=== PATIENT | male | born 1970 | race Caucasian/White ===

== ENCOUNTER 2017-09-14 17:02 | Inpatient (IN) | payer OTHER ==
--- NOTE | 2017-09-14 17:36 | ED CARDIAC/CP/PALPITATIONS ---
History of Present Illness General Chief Complaint: General Adult Stated Complaint: PT HAS A PAIN IN THE CHEST AND THE BACK,SOB Source: patient Exam Limitations: no limitations Allergies Coded Allergies: No Known Allergies (09/14/17) Reconcile Medications Esomeprazole Magnesium (Nexium) 20 MG CAPSULE. 1 CAP PO DAILY GI (Reported) Triage Note: PT TO ED FOR C/C OF MID EPIGASTRIC PAIN THAT RADIATES INTO MID BACK AND THEN TRAVELS TO BILATERAL SIDES AND INTERMITTENTLY INTO ARMS SINCE TUESDAY. PT NOTED TO BE SPEAKING IF IT HURTS TO TALK, BUT PAIN IS NOT REPRODUCIBLE ON PALPATION. REPORTS +SOB. TRIED MOTRIN WITHOUT RELIEF. +SMOKER. Triage Nurses Notes Reviewed? yes Onset: Gradual Duration: constant Timing: recent history Quality/Severity: pressure Location: substernal Radiation: back HPI: Patient is a 47-year-old male with a past medical history of GERD compliant with Nexium who is in every day significant tobacco smoker who presents emergency room with a four-day history of worsening substernal chest crushing pain with radiation to back. Patient denies any arm pain jaw pain nausea vomiting fever chills leg swelling hemoptysis shortness of breath. Patient does have significant family history of cardiac infarction. Patient to ibuprofenyesterday with no relief of symptoms Denies any leg swelling (Juan Miguel CHARLES,Arnaldo) Vital Signs & Intake/Output Vital Signs & Intake/Output Vital Signs Date Time Temp Pulse Resp B/P B/P Pulse O2 O2 Flow FiO2 Mean Ox Delivery Rate 09/15 2007 980.0 79 18 132/80 97 Nasal 2.0L Cannula 09/14 1830 98.0 81 18 138/71 97 Room Air 09/14 1808 84 22 142/78 97 Room Air 09/14 1751 97 Room Air 09/14 1715 97.7 87 20 147/88 96 Room Air Room Air (Candice RESENDIZ,Pipo Henderson) Past History Travel History Traveled to [place] past 21 day No Medical History Any Pertinent Medical History? see below for history Neurological: NONE EENT: NONE Cardiovascular: NONE Respiratory: NONE Gastrointestinal: GERD Hepatic: NONE Renal: NONE Musculoskeletal: NONE Psychiatric: NONE Endocrine: NONE Blood Disorders: NONE Cancer(s): NONE RADIOLOGY MANAGER/Reproductive: NONE Surgical History Surgical History: non-contributory Psychosocial History What is your primary language Nauruan Tobacco Use: Current Daily Use Daily Tobacco Use Amount/Type: => 5 Cigarettes daily ETOH Use: denies use Illicit Drug Use: denies illicit drug use Family History Hx Contributory? No (Arnaldo Dean) Review of Systems Review of Systems Constitutional: Reports: no symptoms. EENTM: Reports: no symptoms. Respiratory: Reports: see HPI. Cardiovascular: Reports: see HPI. GI: Reports: no symptoms. Genitourinary: Reports: no symptoms. Musculoskeletal: Reports: no symptoms. Skin: Reports: no symptoms. Neurological/Psychological: Reports: no symptoms. Hematologic/Endocrine: Reports: no symptoms. Immunologic/Allergic: Reports: no symptoms. All Other Systems: Reviewed and Negative (Arnaldo Dean) Physical Exam Physical Exam General Appearance: mild distress, obese Head: atraumatic Eyes: Bilateral: normal appearance. Ears, Nose, Throat: normal ENT inspection Neck: normal inspection Respiratory: normal breath sounds Cardiovascular: regular rate/rhythm Gastrointestinal: normal bowel sounds, soft, non-tender Extremities: no edema Neurologic/Psych: no motor/sensory deficits, awake Skin: intact, normal color, warm/dry Lymphatic: no anterior cervical abril Core Measures ACS in differential dx? Yes CVA/TIA Diagnosis No Sepsis Present: No Sepsis Focused Exam Completed? No (Arnaldo Dean) Progress Differential Diagnosis: AMI, aortic dissection, atrial fibrillation, cholecystitis, CHF/pulm edema, costochondritis, hyperkalemia, hypovolemia, hyperthyroid, hyperventilation, intracranial hemorrhage, musculoskeletal pain, myocarditis, pancreatitis, pericarditis, pneumonia, pneumothorax, PSVT, pulmonary embolism, PUD/GERD, PVCs/PACs, respiratory failure, sepsis, unstable angina, V-fib/V-Tach, WPW syndrome Plan of Care: Orders Procedure Date/time Status Heart Healthy Diet 09/15 B Active Patient Data 09/14 2129 Active TROPONIN LEVEL 09/15 2007 Complete EKG 09/15 2007 Active ED Holding Orders 09/14 2006 Active Admit to inpatient 09/14 2006 Active Vital Signs 09/14 2007 Active Code Status 09/14 2007 Active Add-on Test (ER Only) 09/14 1814 Active Intake & Output 09/14 1741 Active Add-on Test (ER Only) 09/14 1734 Active LIPASE 09/14 1730 Complete D-DIMER 09/14 1730 Complete AMYLASE 09/14 1730 Complete TROPONIN LEVEL 09/14 1720 Complete COMPREHENSIVE METABOLIC PANEL 09/14 1720 Complete CBC WITHOUT DIFFERENTIAL 09/14 1720 Complete EKG 09/14 1705 Active Laboratory Tests 09/14/17 2030: Troponin I < 0.01 09/14/17 1734: Amylase Cancelled, Lipase Cancelled 09/14/17 1730: Anion Gap 14, Estimated GFR > 60, BUN/Creatinine Ratio 11.8, Glucose 85, Calcium 9.7, Total Bilirubin 0.5, AST 25, ALT 35, Alkaline Phosphatase 80, Troponin I < 0.01, Total Protein 7.2, Albumin 4.4, Globulin 2.8, Albumin/Globulin Ratio 1.6, Amylase 49, Lipase 159, D-Dimer High Sensitivty 318 H, CBC w Diff NO MAN DIFF REQ, RBC 5.41, MCV 91.4, MCH 31.0, MCHC 33.9, RDW 13.4, MPV 8.4, Gran % 61.3, Lymphocytes % 27.1, Monocytes % 7.0, Eosinophils % 4.2, Basophils % 0.4, Absolute Granulocytes 6.5, Absolute Lymphocytes 2.9, Absolute Monocytes 0.7 H, Absolute Eosinophils 0.4, Absolute Basophils 0 ON initial examination was complaining of crushing substernal chest pain with radiation to back was in mild distress diaphoretic Patient initially was given therapeutic aspirin for concerns of ACS patient was given nitroglycerin when he states his symptoms of pain is worsened since. GI cocktail was administered Initial EKG was normal sinus rhythm no concerns of infarct troponin initially was negative Discussed patient with cardiology is Dr. Hennessy who was aware of patient's presenting complaints and will be admitted and he will consult patient feels mildly improved with morphine however is still complaining of ongoing substernal crushing chest pain. CT angiogram of chest was unremarkable for acute process, [address] Hennessy in which he advised patient to receive repeat EKG and troponin And at this time did not administered heparin due to no findings of ischemic abnormalities of EKG or troponin Repeat EKG was no ischemic findings and was unchanged from initial Diagnostic Imaging: Viewed by Me: Radiology Read. Radiology Impression: no acute abnormality Initial ED EKG: normal p-waves, normal QRS complex, 81 BPM,NSR, MILD PEAKED T WAVES Repeat EKG: unchanged Comments: PATIENT: PIPO MOORE PRESENT AGE: 47 PATIENT ACCOUNT NO: [id number] : 69 LOCATION: [facility] ORDERING PHYSICIAN: Arnaldo CHARLES SERVICE DATE: 09/14/17 EXAM TYPE: CAT - CTA CHEST-PULMONARY EMBOLISM EXAMINATION: CT ANGIOGRAM OF THE CHEST WITH AND WITHOUT CONTRAST (CT PULMONARY ANGIOGRAM FOR PE) CLINICAL INFORMATION: 47-year-old man with chest pain. COMPARISON: 09/14/2017 chest radiograph TECHNIQUE: Prior to contrast administration, noncontrast localization images were obtained. Subsequently, multidetector volumetric imaging was performed from the thoracic inlet to below the diaphragms following the administration of 95 mL Optiray 320 intravenous contrast. No contrast reaction reported. Sagittal, coronal, and MIP oblique sagittal reformatted images were obtained on the CT workstation, uploaded to PACS, and reviewed. Total exam dose-length product 507 mGy-cm. FINDINGS: QUALITY OF STUDY/CONTRAST BOLUS: Satisfactory PULMONARY ARTERIES: No central or segmental pulmonary emboli. LUNG: There is severe paraseptal and centrilobular emphysema. Atelectatic changes are noted at both lung bases. PLEURA: No pleural effusion or pneumothorax. MEDIASTINUM: Normal heart size. No pericardial effusion. No hilar or mediastinal lymphadenopathy. CHEST WALL/AXILLA: No axillary or internal mammary lymphadenopathy. OSSEOUS STRUCTURES: No acute or suspicious osseous abnormality. UPPER ABDOMEN: Unremarkable. IMPRESSION: No evidence of acute or chronic pulmonary emboli. Severe emphysema. DICTATED BY: Christiane Call MD DATE/TIME DICTATED:09/14/171937 CHIP TESTER:TEODORO DATE/TIME TRANSCRIBED:09/14/171937 CONFIDENTIAL, DO NOT COPY WITHOUT PATIENT: PIPO MOORE PRESENT AGE: 47 PATIENT ACCOUNT NO: [id number] : 69 LOCATION: [facility] ORDERING PHYSICIAN: Arnaldo CHARLES SERVICE DATE: 09/14/17 EXAM TYPE: RAD - XRY-CHEST XRAY, TWO VIEWS EXAMINATION: XR CHEST CLINICAL INFORMATION: 47-year-old man with chest pain. COMPARISON: None TECHNIQUE: 2 views of the chest were obtained. FINDINGS: The lungs are well expanded, without evidence of focal airspace consolidation or pulmonary edema. Heart size is within the range of normal. There are no pleural effusions. There is chronic appearing diffuse interstitial prominence. IMPRESSION: No convincing radiographic evidence of an acute cardiopulmonary process. DICTATED BY: Christiane Call MD DATE/TIME DICTATED:09/14/171846 CHIP TESTER:TEODORO DATE/TIME TRANSCRIBED:09/14/171846 (Arnaldo Dean) Departure Departure Disposition: STILL A PATIENT Condition: Stable Clinical Impression Primary Impression: Angina at rest Referrals: Patient Has No Primary Care Dr Departure Forms: Customer Survey General Discharge Information Admission Note Documentation of Exam: Documentation of any treatments & extenuating circumstances including Concerns Regarding Discharge (functional status, medication knowledge or non-compliance, living conditions, etc.) that warrant an admission rather than observation: [PT requires telemetry admission for concerns of angina at rest and persistent chest pain patient REQUIRES cardiology consultation and repeat EKG and serial troponins repeat blood work and possible cardiac catheterization if symptoms persist.] (Arnaldo Dean) Admission Note Spoke With: Rene Parkinson MD Documentation of Exam: Documentation of any treatments & extenuating circumstances including Concerns Regarding Discharge (functional status, medication knowledge or non-compliance, living conditions, etc.) that warrant an admission rather than observation: [See below note] PA/WASTE HANDLING TECHNICIAN Co-Sign Statement Statement: ED Attending supervision documentation- [X] I saw and evaluated the patient. I have also reviewed all the pertinent lab results and diagnostic results. I agree with the findings and the plan of care as documented in the PA's/WASTE HANDLING TECHNICIAN's documentation. [X] I have reviewed the ED Record and agree with the PA's/WASTE HANDLING TECHNICIAN's documentation. [] Additions or exceptions (if any) to the PAs/WASTE HANDLING TECHNICIAN's note and plan are summarized below: [Substernal chest pain radiating to his back. No relief with several nitroglycerin. Patient has multiple risk factors for coronary artery disease. Case was discussed with Dr. Hennessy cardiology who recommends admission to the hospital.] (Candice RESENDIZ,Pipo Henderson) Critical Care Note Critical Care Note Critical Care Time: 30-74 min (Arnaldo Dean)
[2017-09-14 17:41] LABS: ABSOLUTE BASOPHIL COUNT 0 /CUMM (0.0-0.2); ABSOLUTE EOSINOPHIL COUNT 0.4 /CUMM (0.0-0.7); ABSOLUTE GRANULOCYTE CT 6.5 /CUMM (1.4-6.5); ABSOLUTE LYMPH COUNT 2.9 /CUMM (1.2-3.4); ABSOLUTE MONOCYTE COUNT 0.7 /CUMM (0.10-0.60); BASOPHIL % 0.4 % (0.0-2.0); EOSINOPHIL % 4.2 % (0-5); GRANULOCYTE % 61.3 % (42.2-75.2); HEMATOCRIT 49.5 % (42-52); MEAN CORPUSCULAR HGB CONC 33.9 G/DL (33.0-37.0); MEAN CORPUSCULAR VOLUME 91.4 FL (80.0-94.0); MEAN PLATELET VOLUME 8.4 FL (7.4-10.4); PLATELET COUNT 285 /CUMM (130-400); RBC DISTRIBUTION WIDTH 13.4 % (11.5-14.5); RED BLOOD CELL CT 5.41 /CUMM (4.70-6.10); WHITE BLOOD CELL COUNT 10.7 /CUMM (4.8-10.8)
--- NOTE | 2017-09-14 18:52 | RADIOLOGY REPORT ---
EXAMINATION: XR CHEST CLINICAL INFORMATION: 47-year-old man with chest pain. COMPARISON: None TECHNIQUE: 2 views of the chest were obtained. FINDINGS: The lungs are well expanded, without evidence of focal airspace consolidation or pulmonary edema. Heart size is within the range of normal. There are no pleural effusions. There is chronic appearing diffuse interstitial prominence. IMPRESSION: No convincing radiographic evidence of an acute cardiopulmonary process.
[2017-09-14] MEDS ORDERED: NEXIUM20 M1 PO (18:55)
--- NOTE | 2017-09-14 19:46 | CT SCAN REPORT ---
EXAMINATION: CT ANGIOGRAM OF THE CHEST WITH AND WITHOUT CONTRAST (CT PULMONARY ANGIOGRAM FOR PE) CLINICAL INFORMATION: 47-year-old man with chest pain. COMPARISON: 09/14/2017 chest radiograph TECHNIQUE: Prior to contrast administration, noncontrast localization images were obtained. Subsequently, multidetector volumetric imaging was performed from the thoracic inlet to below the diaphragms following the administration of 95 mL Optiray 320 intravenous contrast. No contrast reaction reported. Sagittal, coronal, and MIP oblique sagittal reformatted images were obtained on the CT workstation, uploaded to PACS, and reviewed. Total exam dose-length product 507 mGy-cm. FINDINGS: QUALITY OF STUDY/CONTRAST BOLUS: Satisfactory PULMONARY ARTERIES: No central or segmental pulmonary emboli. LUNG: There is severe paraseptal and centrilobular emphysema. Atelectatic changes are noted at both lung bases. PLEURA: No pleural effusion or pneumothorax. MEDIASTINUM: Normal heart size. No pericardial effusion. No hilar or mediastinal lymphadenopathy. CHEST WALL/AXILLA: No axillary or internal mammary lymphadenopathy. OSSEOUS STRUCTURES: No acute or suspicious osseous abnormality. UPPER ABDOMEN: Unremarkable. IMPRESSION: No evidence of acute or chronic pulmonary emboli. Severe emphysema.
--- NOTE | 2017-09-14 20:14 | History & Physical ---
Lisandra Morrison MD,[facility] 09/14/17 2013: General Information and HPI MD Statement: I have seen and personally examined PIPO MOORE and documented this H&P. The patient is a 47 year old M who presented with a patient stated chief complaint of [chest pain and SOB]. Source of Information: patient Exam Limitations: no limitations History of Present Illness: Patient is 47-year-old male with no significant PMH except GERD, back surgery ( for disc) presented to the ED with CC of chest pain. Patient noted that his substernal chest pain started since Tuesday night when it woke him up from sleep. Initially he thought it was related to his past back pains and took Motrin but had no improvement. The pain is constant, intensity ranging from 5-8/10, radiated to the back, intermittantly to right scapula, left arm, increased with sitting up, deep breathing (associated with shortness of breathing) and did not get better (patient reported minimal improvement after recieving nitro patch and morphin in ED). He denied N and V, fever chills, abdominal pain, change in stool or urine color. He had stress test/Echo done 5 years ago at [facility], [facility] after complains of chest tightness and noted the results were normal. 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 He reported smoking 1PPD for the last 20 years, denied alcohol or drugs. His brother when he was 48 from heart attack. Allergies/Medications Allergies: Coded Allergies: No Known Allergies (09/14/17) Home Med list Esomeprazole Magnesium (Nexium) 20 MG CAPSULE. 1 CAP PO DAILY GI (Reported) Past History Travel History Traveled to [place] past 21 day No Medical History Neurological: NONE EENT: NONE Cardiovascular: NONE Respiratory: NONE Gastrointestinal: GERD Hepatic: NONE Renal: NONE Musculoskeletal: NONE Psychiatric: NONE Endocrine: NONE Blood Disorders: NONE Cancer(s): NONE WINE MANAGER/Reproductive: NONE Surgical History Surgical History: non-contributory Past Family/Social History Psychosocial History ETOH Use: denies use Illicit Drug Use: denies illicit drug use Review of Systems Review of Systems Constitutional: Reports: see HPI. Exam & Diagnostic Data Last 24 Hrs of Vital Signs/I&O Vital Signs Date Time Temp Pulse Resp B/P B/P Pulse O2 O2 Flow FiO2 Mean Ox Delivery Rate 09/14 2242 Nasal 2.0L Cannula 09/144 98.1 68 18 124/72 97 Nasal 2.0L Cannula 09/15 2007 98.0 79 18 132/80 97 Nasal 2.0L Cannula 09/14 1830 98.0 81 18 138/71 97 Room Air 09/14 1808 84 22 142/78 97 Room Air 09/14 1751 97 Room Air 09/14 1715 97.7 87 20 147/88 96 Room Air Room Air Physical Exam General Appearance Alert, Oriented X3, Cooperative, Mild Distress, holding right side of chest with left hand Skin No Significant Lesion Skin Temp/Moisture Exam: Warm/Dry Sepsis Skin Exam (color): Normal for Ethnicity HEENT Atraumatic, EOMI, Pupils reactive to light Cardiovascular Regular Rate, Normal S1, Normal S2 Lungs Clear to Auscultation, decreased air entry due to pain Abdomen Soft, No Tenderness, reported initial RUQ tenderness with ED personnel which imrproved at time of interview Neurological Normal Speech Extremities No Edema Last 24 Hrs of Labs/Petey: Laboratory Tests 09/14/17 2030: Troponin I < 0.01 09/14/17 1734: Amylase Cancelled, Lipase Cancelled 09/14/17 1730: Anion Gap 14, Estimated GFR > 60, BUN/Creatinine Ratio 11.8, Glucose 85, Calcium 9.7, Total Bilirubin 0.5, AST 25, ALT 35, Alkaline Phosphatase 80, Troponin I < 0.01, Total Protein 7.2, Albumin 4.4, Globulin 2.8, Albumin/Globulin Ratio 1.6, Amylase 49, Lipase 159, D-Dimer High Sensitivty 318 H, CBC w Diff NO MAN DIFF REQ, RBC 5.41, MCV 91.4, MCH 31.0, MCHC 33.9, RDW 13.4, MPV 8.4, Gran % 61.3, Lymphocytes % 27.1, Monocytes % 7.0, Eosinophils % 4.2, Basophils % 0.4, Absolute Granulocytes 6.5, Absolute Lymphocytes 2.9, Absolute Monocytes 0.7 H, Absolute Eosinophils 0.4, Absolute Basophils 0 Assessment/Plan Assessment: Patient is 47-year-old male presented with chest pain constant, minimal improvement with nitro and morphin Echo and stress test normal 5 y ago PMH GERD, back surgery (for disc) VS, Ph Ex at admission: BP 147/88, KS 87, others insignificant, saturating well in room temperature, was placed on 2L later in the ED EKG: Tall T in precordial Labs at admission: CBCs insignificant, BEP insignificant Initial troponin negative D-dimer: 318 Imagings at admission: CXR: No convincing radiographic evidence of an acute cardiopulmonary process. Chest CTA: No evidence of acute or chronic pulmonary emboli. Severe emphysema. Patient was admitted to telemetry floor for management of following conditions: Chest pain EKG changes, T tall in precordial most likely non cardiac, rule out ACS considering FH and smoking - admit to tele - puls ox, oxygen - Vital signs - ECG and tn, repeat - Morphin - nitro for pain, Asprin - pantoprazol FC DVT ppx: alps, pharmacological heart healthy diet As Ranked By This Provider Problem List: 1. Chest pain Core Measures/Misc (12/26) Acute Coronary Syndrome ACS Diagnosis: No Congestive Heart Failure Congestive Heart Failure Diagnosis No Cerebrovascular Accident CVA/TIA Diagnosis: No VTE (View Protocol) VTE Risk Factors Age>40 No Mechanical VTE Prophylaxis d/t N/A MechProphylax Ordered No VTE Pharm Prophylaxis d/t NA PharmProphylax ordered Sepsis (View protocol) Sepsis Present: No If YES complete Sepsis Event Note If YES complete Sepsis Event Note Shyanne Alatorre 09/14/172023: Core Measures/Misc (12/26) Sepsis (View protocol) If YES complete Sepsis Event Note If YES complete Sepsis Event Note Resident Review Statement Resident Statement: examined this patient, discussed with internist medical doctor md, agreed with internist medical doctor md Other Findings: This is a 47-year-old male with past medical history of gastroesophageal reflux disease, previous back surgeries 2 for prolapsed disc, current active smoker ( one pack per day), positive family history of acute coronary syndrome (brother at 48 years secondary to ID) came in with chief complaint of worsening chest pain that started 3 days prior to admission. The chest pain was midepigastric in location, radiating into mid back, traveling to bilateral sides, intermittently into b/l arms, at its worse it was 8 out of 10, at its best it was 4 out of 10, tried Motrin without any relief, the pain does not change with position, no particular position that he is more comfortable in, no recent history of fever, cough sore throat or any viral illness, drinks 2 coffees per day, does take Nexium pretty much every day for his gastroesophageal reflux disease. He received IV morphine, GI cocktail and nitroglycerin while in the ER. As per him the GI cocktail did not help much however nitroglycerin did relieve the pain a little bit but not much. Vitals on admission temperature of 98.0, pulse of 81, respiration of 22, blood pressure 148/72, he was 97% saturating on room air. Current active smoker 1 pack per day Troponin negative less than 0.01. EKG showed Chest x-ray did not show any convincing radiographic evidence of acute cardiopulmonary process. D-dimer was found to be in 300s, CTA ruled out any evidence of PE, however did show paraseptal and centrilobular emphysema. Problem list along with assessment and plan. Problem #1 chest pain. * Possible ACS versus GERD vs Pericarditis * Ekg and troponin X 3, iv morphine 2mg Q6prn, oxygen, aspirin ,cardiology consult. * consider echo in am. * Pain not positional and no previous history of sore throat, viral illness, therefore paericarditis less likely however definitely on differentials, EKG changes donot show typical KS depression of diffuse St elevations,ct cardiac monitoring,not on iv heparin for now however if bumps trop, will consider it. * Initial set of troponin negative, no acute St-T wave changes on EKG * Of note, positive history of ID and premature cardiac related in patient 's brother as age of 48 * will give higher dose of Aspirin for it's antiinflammatory effect. * Ct nitro Q6 for chest pain. Problem #2 GERD * Last endoscopy atleast 10 years back, previous endo as per patient showed prebarret's changes which were cauterized, will ct iv PPI BID, guaic stool. Problem #3 Current Active Smoker * Smoking cessation counselling done Problem #4 Emphysema * 2/2 to smoking * crucial to quit. reduce smoking to prevent worsening changes and COPD. FC heart healthy diet Pain Mx morphine Dvt Px lovenox Iggy RESENDIZ, [facility] 09/14/17 2208: Core Measures/Misc (12/26) Sepsis (View protocol) If YES complete Sepsis Event Note If YES complete Sepsis Event Note Attending MD Review Statement Attending Statement Attending MD Statement: examined this patient, discuss w/resident/PA/RN LIAISON, agreed w/resident/PA/RN LIAISON, discussed with family, reviewed images, amended to note Attending Assessment/Plan: 47 yo obese M with h/o GERD, pre-Goss's, chronic back pain 2/2 herniated disc surgery, [id number] smoking history and significant history of cardiac arrest in his elder brother (age 48 yrs), is brought in for evaluation of 3-day h/o ongoing substernal crushing chest pain radiating to the back, and both shoulders , associated with dyspnea. Leaning forward at times help with the pain but not always. He has difficulty finding the most comfortable position. He denies any recent URI symptoms. He denies palpitations, nausea or diaphoresis. He has been taking Motrin three times a day with not much relief. Symptoms were very severe for him to come to ER. He denies any trauma or fall/ injury. Of note, patient was observed at [place] [facility] about 5 yrs ago for chest pain, ACS was ruled out and he underwent a stress test/ Echo that was normal. He does not recollect the name of the artificial marble worker. In the ER, he received aspirin, SL nitro, GI cocktail without much relief, he then got nitropaste and morphine with some relief. Vitals stable. Examination is unremarkable. Chest pain is not reproducible. Labs normal with two sets of trop being negative. EKG: sinus rhythm with hyperacute T-waves in V2-4, but no J-point elevation, Qtc 414. Chest: no acute process. CTA: severe emphysema, but no acute or chronic PE. No pleural effusion or pneumonia. Assessment and plan: 1. Substernal chest pain rule out ACS 2. Possible acute pericarditis although EKG and clinical features are not clearly supportive 3. Smoker 4. H/o GERD - Admit to Telemetry - Watch for arrhythmias - Serial EKG and troponin - Aspirin given in ER, will switch to 650 mg TID for possible pericarditis - Watch for bleeding while on aspirin - Obtain echo to assess for pericardial effusion, RWMA, EF and valvular disorders - Cardiology consult (Dr. Hennessy) - Continue O2 supplementation - Nitro paste Q6 - IV morphine as needed - If troponin trending up, will consider IV heparin - Hold off beta elena and statin for now, d/w cardio in AM - Check ESR, CRP, lipid panel, TSH, free T4, HbA1c - IV protonix BID - Smoking cessation counseling DVT ppx Lovenox. Full code.
[2017-09-14 22:52] VITALS: BP 112/82
--- NOTE | 2017-09-14 23:30 | Admission Certification ---
Admission Certification Certification Statement - As attending physician, I certify that at the time of - admission, based on clinical presentation, severity of - symptoms, need for further diagnostic testing and - therapeutic interventions, and risk of adverse outcomes - without in-hospital treatment, in my clinical assessment, - this patient requires an acute hospital stay for a minimum - of two nights or longer. I have also considered psychsocial - factors such as support system, advanced age, financial - issues, cognitive issues, and failed out-patient treatments, - past re-admission history, safety of patient, and lack of - compliance as applicable. Specific rationale supporting this admission is: Chest pain in this young patient with risk factors including smoking, obesity and significant family cardiac history.
--- NOTE | 2017-09-15 00:34 | Cons- Cardiology ---
General Information and HPI Consulting Request Date of Consult: 09/15/17 Requested By: Iggy RESENDIZ,Rene Reason for Consult: Chest discomfort ; rule out ischemia; rule out pericarditis Source of Information: patient, family Exam Limitations: no limitations History of Present Illness: Patient is 47-year-old male with no significant PMH except GERD, back surgery ( for disc) presented to the ED with CC of chest pain. Patient noted that his substernal chest pain started since Tuesday night when it woke him up from sleep. Initially he thought it was related to his past back pains and took Motrin but had no improvement. The pain is constant, intensity ranging from 5-8/10, radiated to the back, intermittantly to right scapula, left arm, increased with sitting up, deep breathing (associated with shortness of breathing) and did not get better (patient reported minimal improvement after recieving nitro patch and morphin in ED). He denied N and V, fever chills, abdominal pain, change in stool or urine color. He had stress test/Echo done 5 years ago at [facility] after complains of chest tightness and noted the results were normal. Allergies/Medications Allergies: Coded Allergies: No Known Allergies (09/14/17) Home Med List: Omeprazole 40 MG CAPSULE. 1 CAP PO DAILY ACID REFLUX Current Medications: Current Medications Sig/Ward Start time Last Medication Dose Route Stop Time Status Admin Aspirin 81 MG DAILY 09/15 899 AC PO Aspirin 325 MG ONCE ONE 09/14 1814 DC 09/14 PO 09/15 1815 1808 Aspirin 0 .STK-MED ONE 09/14 181 DC PO Enoxaparin Sodium 40 MG DAILY 09/15 899 AC SC Morphine Sulfate 2 MG Q4P PRN 09/14 2230 AC 09/14 IV 2312 Morphine Sulfate 0 .STK-MED ONE 09/14 1854 DC .ROUTE Morphine Sulfate 4 MG ONCE ONE 09/14 1845 DC 09/14 IV 09/14 184 1850 Nitroglycerin 0.5 GM Q12P PRN 09/14 2230 AC TOP Nitroglycerin 0 .STK-MED ONE 09/14 1907 DC TOP Nitroglycerin 1 GM ONCE ONE 09/14 1845 DC 09/14 TOP 09/14 1842006 Nitroglycerin 0.4 MG ONCE ONE 09/14 1815 DC 09/14 SL 09/14 1816 1808 Nitroglycerin 0 .STK-MED ONE 09/14 1811 DC Pantoprazole Sodium 40 MG DAILY 09/15 0900 AC IV Past History Travel History Traveled to [place] past 21 day No Medical History Neurological: NONE EENT: NONE Cardiovascular: NONE Respiratory: NONE Gastrointestinal: GERD Hepatic: NONE Renal: NONE Musculoskeletal: NONE Psychiatric: NONE Endocrine: NONE Blood Disorders: NONE Cancer(s): NONE DIRECTOR OF PUBLICATIONS/Reproductive: NONE Surgical History Surgical History: non-contributory Psychosocial History Smoking Status: Current Everyday Smoker ETOH Use: denies use Illicit Drug Use: denies illicit drug use Exam & Diagnostic Data Vital Signs and I&O Vital Signs Date Time Temp Pulse Resp B/P B/P Pulse O2 O2 Flow FiO2 Mean Ox Delivery Rate 09/14 2252 97.8 7 20 112/82 93 Nasal 3.0L Cannula 09/14 2241 Nasal 2.0L Cannula 09/144 98.1 68 18 124/72 97 Nasal 2.0L Cannula 09/15 2007 98.0 79 18 132/80 97 Nasal 2.0L Cannula 09/14 1830 98.0 81 18 138/71 97 Room Air 09/14 1808 84 22 142/78 97 Room Air 09/14 1751 97 Room Air 09/14 1715 97.7 87 20 147/88 96 Room Air Room Air Intake & Output 09/15 0809/15 0000 09/14 1600 09/14 0800 09/14 0000 09/13 1600 Intake Total Output Total Balance Patient 240 lb Weight Weight Bed scale Measurement Method Physical Exam: General Appearance Alert, Oriented X3, Cooperative, Mild Distress, holding right side of chest with left hand Skin No Significant Lesion HEENT Atraumatic, EOMI, Pupils reactive to light Cardiovascular Regular Rate, Normal S1, Normal S2, 1/6 sytolic murmur; no chest wall tenderness Lungs Clear to Auscultation, decreased air entry due to pain Abdomen Soft, No Tenderness, reported initial RUQ tenderness with ED personnel which imrproved at time of interview Neurological Normal Speech Extremities No Edema Labs/Petey Results: Laboratory Tests 09/14 09/14 09/14 2030 1734 1730 Chemistry Sodium (137 - 145 mmol/L) 143 Potassium (3.5 - 5.1 mmol/L) 4.3 Chloride (98 - 107 mmol/L) 105 Carbon Dioxide (22 - 30 mmol/L) 25 Anion Gap (5 - 16) 14 BUN (9 - 20 mg/dL) 13 Creatinine (0.7 - 1.2 mg/dL) 1.1 Estimated GFR (>60 ml/min) > 60 BUN/Creatinine Ratio (7 - 25 %) 11.8 Glucose (65 - 99 mg/dL) 85 Calcium (8.4 - 10.2 mg/dL) 9.7 Total Bilirubin (0.2 - 1.3 mg/dL) 0.5 AST (17 - 59 U/L) 25 ALT (21 - 72 U/L) 35 Alkaline Phosphatase (< 127 U/L) 80 Troponin I (<0.11 ng/ml) < 0.01 < 0.01 Total Protein (6.3 - 8.2 g/dL) 7.2 Albumin (3.5 - 5.0 g/dL) 4.4 Globulin (1.9 - 4.2 gm/dL) 2.8 Albumin/Globulin Ratio (1.1 - 2.2 %) 1.6 Amylase (30 - 110 U/L) Cancelled 49 Lipase (23 - 300 U/L) Cancelled 159 Coagulation D-Dimer High Sensitivty (0 - 243 ng/ml) 318 H Hematology CBC w Diff NO MAN DIFF REQ WBC (4.8 - 10.8 /CUMM) 10.7 RBC (4.70 - 6.10 /CUMM) 5.41 Hgb (14.0 - 18.0 G/DL) 16.8 Hct (42 - 52 %) 49.5 MCV (80.0 - 94.0 FL) 91.4 MCH (27.0 - 31.0 PG) 31.0 MCHC (33.0 - 37.0 G/DL) 33.9 RDW (11.5 - 14.5 %) 13.4 Plt Count (130 - 400 /CUMM) 285 MPV (7.4 - 10.4 FL) 8.4 Gran % (42.2 - 75.2 %) 61.3 Lymphocytes % (20.5 - 51.1 %) 27.1 Monocytes % (1.7 - 9.3 %) 7.0 Eosinophils % (0 - 5 %) 4.2 Basophils % (0.0 - 2.0 %) 0.4 Absolute Granulocytes (1.4 - 6.5 /CUMM) 6.5 Absolute Lymphocytes (1.2 - 3.4 /CUMM) 2.9 Absolute Monocytes (0.10 - 0.60 /CUMM) 0.7 H Absolute Eosinophils (0.0 - 0.7 /CUMM) 0.4 Absolute Basophils (0.0 - 0.2 /CUMM) 0 Diagnostic Data EKG Results NSR; subtle hyperacute T waves in V3-V5 Assessment/Plan Assessment/Plan Assessment: 1. Atypical chest pain syndrome - symptoms do not appear to be ischemic in nature. ? musculoskeletal; ? atypical pericarditis. 2. History of GERD 3. Tobacco USe Recommendations: - monitor on telemetry - serial ECGs - Serial troponins - Echocardiogram - NSAIDS - OOB as tolerated. Consult Acknowledgment - Thank you for your consult request.
[2017-09-15 05:44] LABS: ABSOLUTE BASOPHIL COUNT 0 /CUMM (0.0-0.2); ABSOLUTE EOSINOPHIL COUNT 0.4 /CUMM (0.0-0.7); ABSOLUTE LYMPH COUNT 2.8 /CUMM (1.2-3.4); ABSOLUTE MONOCYTE COUNT 0.6 /CUMM (0.10-0.60); BASOPHIL % 0.6 % (0.0-2.0); EOSINOPHIL % 6.4 % (0-5); GRANULOCYTE % 44.1 % (42.2-75.2); HEMATOCRIT 45.6 % (42-52); MEAN CORPUSCULAR HGB 31.2 PG (27.0-31.0); MEAN CORPUSCULAR HGB CONC 34.1 G/DL (33.0-37.0); MEAN CORPUSCULAR VOLUME 91.7 FL (80.0-94.0); MEAN PLATELET VOLUME 8.7 FL (7.4-10.4); PLATELET COUNT 239 /CUMM (130-400); RBC DISTRIBUTION WIDTH 13.2 % (11.5-14.5); RED BLOOD CELL CT 4.98 /CUMM (4.70-6.10); WHITE BLOOD CELL COUNT 6.9 /CUMM (4.8-10.8)
[2017-09-15 06:36] VITALS: BP 120/80
--- NOTE | 2017-09-15 07:17 | PN- Housestaff ---
Adam RESENDIZ,Negra 09/15/17 0717: Subjective Follow-up For: Chest pain Tele-Events Since Last Visit: No overnight events, normal sinus rhythm, 62, 0.016 Subjective: Patient was seen and examined at bedside, continues to complain of chest pain 6/ 10 in severity which increases when taking deep breath and changing his position. He also complains of shortness of breath he denies any fever, chills, nausea, vomiting or diarrhea or constipation Review of Systems Constitutional: Reports: see HPI. Cardiovascular: Reports: chest pain. Denies: edema, orthopena, palpitations, peripheral edema. Respiratory: Reports: short of breath. Denies: cough, hemoptysis, sputum production. Gastrointestinal: Denies: no symptoms. Genitourinary: Reports: no symptoms. Musculoskeletal: Reports: no symptoms. Objective Last 24 Hrs of Vital Signs/I&O Vital Signs Date Time Temp Pulse Resp B/P B/P Pulse O2 O2 Flow FiO2 Mean Ox Delivery Rate 09/15 0840 80 122/72 92 Room Air 09/15 0636 97.1 68 20 120/80 93 Nasal 2.0L Cannula 09/14 2252 97.8 7 20 112/82 93 Nasal 3.0L Cannula 09/14 2242 Nasal 2.0L Cannula 09/14 2204 98.1 68 18 124/72 97 Nasal 2.0L Cannula 09/15 2007 98.0 79 18 132/80 97 Nasal 2.0L Cannula 09/14 1830 98.0 81 18 138/71 97 Room Air 09/14 1808 84 22 142/78 97 Room Air 09/14 1751 97 Room Air 09/14 1715 97.7 87 20 147/88 96 Room Air Room Air Intake & Output 09/15 1600 07 0800 09/15 0000 Intake Total 120 Output Total 1300 Balance -1180 Intake, Oral 120 Output, Urine 1300 Patient 240 lb Weight Weight Bed scale Measurement Method Physical Exam General Appearance: Alert, Oriented X3, Cooperative, No Acute Distress HEENT: Atraumatic, PERRLA, EOMI, Mucous Membr. moist/pink Assessment/Plan Assessment: 47-year-old male with past medical history of gastroesophageal reflux disease, previous back surgeries 2 for prolapsed disc, current active smoker (one pack per day), positive family history of acute coronary syndrome (brother at 48 years secondary to [place]) came in with chief complaint of worsening chest pain that started 3 days prior to admission. #Chest pain Chest pain was atypical since it increases with deep breathing and changes in position however given the patient family history of sudden cardiac in his brother at age of 48, the patient was admitted to telemetry, serial troponin EKG were negative, Follow-up on echocardiogram DC aspirin per cardiology recommendation Pain controlled with Tylenol, morphine, nitroglycerin # GERD * Last endoscopy atleast 10 years back, previous endo as per patient showed prebarret's changes which were cauterized, will ct iv PPI BID, guaic stool. #Current Active Smoker * Smoking cessation counselling done #Emphysema * 2/2 to smoking * crucial to quit. reduce smoking to prevent worsening changes and COPD. FC heart healthy diet Pain Mx morphine Dvt Px lovenox Problem List: 1. Chest pain Pain Ratin Pain Location: mid chest Pain Goal: Remain pain free Pain Plan: pathway Tomorrow's Labs & Rationales: cbc bep Liseth Lieberman 09/15/17 1056: Attending MD Review Statement Attending Statement Attending MD Statement: examined this patient, discuss w/resident/PA/CIRCULATION MAN, agreed w/resident/PA/CIRCULATION MAN, discussed with family, reviewed EMR data (avail), discussed with nursing, discussed with case mgmt, reviewed images, amended to note Attending Assessment/Plan: 47 o/m with atypcial chest pain. labs and imaging noted. Cardiology consulted, echo as per cardiology. Cardiac enzymes negative. anticipate dc planning soon
[2017-09-15 08:40] VITALS: BP 122/72
[2017-09-15 13:15] VITALS: BP 132/70
--- NOTE | 2017-09-15 14:03 | PN- Student ---
Subjective Subjective: Student H&P HPI: Louis Aleman is a 47 YOM with a past history of GERD and chronic back pain who presented to the ER with a chief complaint of chest pain. The pain began 3 days prior to presentation; it woke him up from sleep and has been constant since. He described it as a moderately severe sharp pain located under his sternum and radiating to his right scapula and left arm. Taking a deep breath and sitting upright makes it worse. Ibuprofin failed to relieve the pain. He denied chest wall tenderness, associated shortness of breath, n/v/f/c, or excessive sweating. Hospital Course: In the ER he was given sublingual nitroglycerin, which only provided modest relief from the pain. An EKG showed NSR without acute changes, but there was some questionably tall T-waves in leads V3 and V4. Further laboratory work showed no elevations in his amylase, lipase, TBili, or Alk Phos. He did have an elevated CRP. Serial troponins have been negative. UTOX was negative. D-dimer was positive, so a CT angiogram was performed which did not show any evidence of PE, pneumothorax, or pericardial effusion, but which did show severe emphysema. He was admitted to the telemetry floor for further cardiac workup due to his familial and social risk factors. Today: This AM he reports that his chest pain has resolved, but he has a new headache without associated visual changes. This may be due to the nitroglycerin patch. He continues to deny any additional symptoms. PMH: GERD Chronic back pain MEDS: Nexium 1/day Ibuprofin PRN FMH: Father - lung cancer Mother - metastatic cancer Brother - heart attack, age 48 SH: Patient smokes 1 ppd Denies ETOH use Denies illicit drug use Objective Objective: On pysical exam this AM, the patient appears mildly uncomfortable in his bed. He is alert and oriented speaking in full sentances. Skin is PWD, pupils are equal, no JVD. Heart and lung sounds were distant and difficult to assess. Distal pulses were intact and symetrical. No leg edema. Laboratory Tests 09/15 09/15 09/14 0440 0030 2030 Chemistry Sodium (137 - 145 mmol/L) 142 Potassium (3.5 - 5.1 mmol/L) 4.4 Chloride (98 - 107 mmol/L) 107 Carbon Dioxide (22 - 30 mmol/L) 25 Anion Gap (5 - 16) 9 BUN (9 - 20 mg/dL) 12 Creatinine (0.7 - 1.2 mg/dL) 1.0 Estimated GFR (>60 ml/min) > 60 BUN/Creatinine Ratio (7 - 25 %) 12.0 Hemoglobin A1c (4.2 - 5.8 %) 5.4 Troponin I (<0.11 ng/ml) < 0.01 < 0.01 C-React Prot High Sens (1.0 - 3.0 mg/L) 6.3 H Triglycerides (<150 mg/dL) 90 Cholesterol (< 200 MG/DL) 146 LDL Cholesterol, Calc (65 - 129 mg/dL) 92 HDL Cholesterol (40 - 60 mg/dL) 36 L Cholesterol/HDL Ratio (0.00 - 4.88 %) 4 TSH (0.270 - 4.200 uIU/mL) 1.020 Free T4 (0.64 - 1.79 ng/dL) 1.35 Hematology CBC w Diff NO MAN DIFF REQ WBC (4.8 - 10.8 /CUMM) 6.9 RBC (4.70 - 6.10 /CUMM) 4.98 Hgb (14.0 - 18.0 G/DL) 15.6 Hct (42 - 52 %) 45.6 MCV (80.0 - 94.0 FL) 91.7 MCH (27.0 - 31.0 PG) 31.2 H MCHC (33.0 - 37.0 G/DL) 34.1 RDW (11.5 - 14.5 %) 13.2 Plt Count (130 - 400 /CUMM) 239 MPV (7.4 - 10.4 FL) 8.7 Gran % (42.2 - 75.2 %) 44.1 Lymphocytes % (20.5 - 51.1 %) 40.0 Monocytes % (1.7 - 9.3 %) 8.9 Eosinophils % (0 - 5 %) 6.4 H Basophils % (0.0 - 2.0 %) 0.6 Absolute Granulocytes (1.4 - 6.5 /CUMM) 3.0 Absolute Lymphocytes (1.2 - 3.4 /CUMM) 2.8 Absolute Monocytes (0.10 - 0.60 /CUMM) 0.6 Absolute Eosinophils (0.0 - 0.7 /CUMM) 0.4 Absolute Basophils (0.0 - 0.2 /CUMM) 0 ESR Westergren (0 - 10 MM) 4 Toxicology Urine Opiates Screen (>2000 NG/ML) 1500.00 Methadone Screen (>300 NG/ML) < 40 Barbiturate Screen (>200 NG/ML) < 60 Ur Phencyclidine Scrn (>25 NG/ML) < 6.00 Amphetamines Screen (>1000 NG/ML) < 100 U Benzodiazepines Scrn (>200 NG/ML) < 85 Urine Cocaine Screen (>300 NG/ML) < 50 Urine Cannabis Screen (>50 NG/ML) < 5.00 0606 06 1734 1730 Chemistry Sodium (137 - 145 mmol/L) 143 Potassium (3.5 - 5.1 mmol/L) 4.3 Chloride (98 - 107 mmol/L) 105 Carbon Dioxide (22 - 30 mmol/L) 25 Anion Gap (5 - 16) 14 BUN (9 - 20 mg/dL) 13 Creatinine (0.7 - 1.2 mg/dL) 1.1 Estimated GFR (>60 ml/min) > 60 BUN/Creatinine Ratio (7 - 25 %) 11.8 Glucose (65 - 99 mg/dL) 85 Calcium (8.4 - 10.2 mg/dL) 9.7 Total Bilirubin (0.2 - 1.3 mg/dL) 0.5 AST (17 - 59 U/L) 25 ALT (21 - 72 U/L) 35 Alkaline Phosphatase (< 127 U/L) 80 Troponin I (<0.11 ng/ml) < 0.01 Total Protein (6.3 - 8.2 g/dL) 7.2 Albumin (3.5 - 5.0 g/dL) 4.4 Globulin (1.9 - 4.2 gm/dL) 2.8 Albumin/Globulin Ratio (1.1 - 2.2 %) 1.6 Amylase (30 - 110 U/L) Cancelled 49 Lipase (23 - 300 U/L) Cancelled 159 Coagulation D-Dimer High Sensitivty (0 - 243 ng/ml) 318 H Hematology CBC w Diff NO MAN DIFF REQ WBC (4.8 - 10.8 /CUMM) 10.7 RBC (4.70 - 6.10 /CUMM) 5.41 Hgb (14.0 - 18.0 G/DL) 16.8 Hct (42 - 52 %) 49.5 MCV (80.0 - 94.0 FL) 91.4 MCH (27.0 - 31.0 PG) 31.0 MCHC (33.0 - 37.0 G/DL) 33.9 RDW (11.5 - 14.5 %) 13.4 Plt Count (130 - 400 /CUMM) 285 MPV (7.4 - 10.4 FL) 8.4 Gran % (42.2 - 75.2 %) 61.3 Lymphocytes % (20.5 - 51.1 %) 27.1 Monocytes % (1.7 - 9.3 %) 7.0 Eosinophils % (0 - 5 %) 4.2 Basophils % (0.0 - 2.0 %) 0.4 Absolute Granulocytes (1.4 - 6.5 /CUMM) 6.5 Absolute Lymphocytes (1.2 - 3.4 /CUMM) 2.9 Absolute Monocytes (0.10 - 0.60 /CUMM) 0.7 H Absolute Eosinophils (0.0 - 0.7 /CUMM) 0.4 Absolute Basophils (0.0 - 0.2 /CUMM) 0 Vital Signs Date Time Temp Pulse Resp B/P B/P Pulse O2 O2 Flow FiO2 Mean Ox Delivery Rate 09/15 1315 97.8 82 18 132/70 92 Room Air 09/15 0840 80 122/72 92 Room Air 09/15 0636 97.1 68 20 120/80 93 Nasal 2.0L Cannula 09/14 2252 97.8 7 20 112/82 93 Nasal 3.0L Cannula 09/14 2242 Nasal 2.0L Cannula 09/14 2204 98.1 68 18 124/72 97 Nasal 2.0L Cannula 09/15 2007 98.0 79 18 132/80 97 Nasal 2.0L Cannula 09/14 1830 98.0 81 18 138/71 97 Room Air 09/14 1808 84 22 142/78 97 Room Air 09/14 1751 97 Room Air 09/14 1715 97.7 87 20 147/88 96 Room Air Room Air Intake & Output / 1600 06/07 0800 06/ 0000 Intake Total 390 120 Output Total 1300 Balance 390 -1180 Intake, IV 30 Intake, Oral 360 120 Output, Urine 1300 Patient 240 lb Weight Weight Bed scale Measurement Method Assessment/Plan Assessment: 47 YOM with a pmh of GERD and chronic back pain and FH of heart disease presenting with subacute chest pain without shortness of breath. Problem 1: Chest pain Ddx: ACS, GERD, PUD - Problem is unlikely to be due to pericarditis, PE, pneumothorax, or aortic disection - ACS should be fully worked up due to family history - Obtain old stress echo and compare to new stress echo to be performed today - GERD and PUD remain a potential etiology in my mind despite daily nexium use. - Have patient follow up with PCP for H. pylori testing or consider GI consult Problem 2: Emphesematous changes on CT Ddx: Emphysema 2/2 smoking - The degree of this problem was severe on CT, and the patient's SpO2 is 92% on RA. - Consider PFTs or pulmonology consult for workup - Encourage smoking cessation
[2017-09-16 06:42] VITALS: BP 120/82
--- NOTE | 2017-09-16 07:08 | PN- Housestaff ---
Adam RESENDIZ,Negra 09/16/17 0708: Subjective Follow-up For: Chest pain Tele-Events Since Last Visit: No overnight events, heart rate 86, normal sinus Subjective: Patient was seen and examined at bedside, he denies any chest pain, nausea, vomiting. He reports that he slept well last night and he feels much better. He is eager to be discharged today. His echo was done yesterday with follow-up on the results today Review of Systems Constitutional: Denies: no symptoms. Cardiovascular: Denies: chest pain, edema, orthopena, palpitations. Respiratory: Denies: cough, orthopnea, short of breath, sputum production. Gastrointestinal: Denies: no symptoms. Musculoskeletal: Denies: no symptoms. Skin: Denies: no symptoms. Objective Last 24 Hrs of Vital Signs/I&O Vital Signs Date Time Temp Pulse Resp B/P B/P Pulse O2 O2 Flow FiO2 Mean Ox Delivery Rate 09/16 0642 97.8 78 18 120/82 95 Room Air 09/16 0000 92 Room Air 09/15 1600 Nasal 2.0L Cannula 09/15 1315 97.8 82 18 132/70 92 Room Air 09/15 0840 80 122/72 92 Room Air Intake & Output 09/16 1600 06/08 0800 06/08 0000 Intake Total 440 400 Output Total Balance 440 400 Intake, Oral 440 400 Patient 213 lb Weight Weight Bed scale Measurement Method Physical Exam General Appearance: Alert, Oriented X3, Cooperative, No Acute Distress HEENT: Atraumatic, PERRLA, EOMI, Mucous Membr. moist/pink Neck: Supple, No JVD Cardiovascular: Normal S1, Normal S2, No Murmurs Lungs: Clear to Auscultation Abdomen: Normal Bowel Sounds, Soft Neurological: Normal Speech, Strength at 5/5 X4 Ext, Normal Tone, Sensation Intact, Cranial Nerves 3-12 NL Extremities: No Clubbing, No Cyanosis, No Edema Vascular: Normal Pulses Assessment/Plan Assessment: 47-year-old male with past medical history of gastroesophageal reflux disease, previous back surgeries 2 for prolapsed disc, current active smoker (one pack per day), positive family history of acute coronary syndrome (brother at 48 years secondary to [place]) came in with chief complaint of worsening chest pain that started 3 days prior to admission. #Chest pain Chest pain was atypical since it increases with deep breathing and changes in position however given the patient family history of sudden cardiac in his brother at age of 48, the patient was admitted to telemetry, serial troponin EKG were negative, Follow-up on echocardiogram DC aspirin per cardiology recommendation Pain controlled with Tylenol, morphine, nitroglycerin # GERD * Last endoscopy atleast 10 years back, previous endo as per patient showed prebarret's changes which were cauterized, will ct iv PPI BID, guaic stool. #Current Active Smoker * Smoking cessation counselling done #Emphysema * 2/2 to smoking * crucial to quit. reduce smoking to prevent worsening changes and COPD. FC heart healthy diet Pain Mx morphine Dvt Px lovenox Problem List: 1. Chest pain Pain Ratin Pain Location: CHEST Pain Goal: Remain pain free Pain Plan: PATHWAY Tomorrow's Labs & Rationales: N/A Liseth Lieberman 09/16/17 1041: Attending MD Review Statement Attending Statement Attending MD Statement: examined this patient, discuss w/resident/PA/RENEWABLE ENERGY CONSULTANT, agreed w/resident/PA/RENEWABLE ENERGY CONSULTANT, discussed with family, reviewed EMR data (avail), discussed with nursing, discussed with case mgmt, reviewed images, amended to note Attending Assessment/Plan: Patient ECHO with normal EF. Patient with no new complaints. He can be discharged with outpatient GI referral.
--- NOTE | 2017-09-16 07:39 | ECHOCARDIOGRAM REPORT ---
PIPO MOORE Age: 47 : 1970 Gender: M Exam Date: 09/15/2017 15:46 Exam Location: [facility] Ht (in): 72 Wt (lb): 240 BSA: 2.38 BP: 120 / 80 Ordering Physician: Shyanne Alatorre MD Referring Physician: Dominic Hennessy MD Technologist: Rosa Garrido [facility] Room Number: 180-02 Indications: CHEST PAIN Rhythm: Sinus Technical Quality: Fair, Technically difficult study FINDINGS Left Ventricle Normal size left ventricle. No obvious regional wall motion abnormalities. Normal left ventricular ejection fraction estimated at 65-70%. Right Ventricle Right ventricle not well visualized, grossly normal. Right Atrium Normal right atrial size. Left Atrium Normal left atrial size. Mitral Valve Mitral valve thickened. Trace to mild mitral regurgitation. Aortic Valve Trileaflet aortic valve. Diffuse thickening (sclerosis) of the aortic valve cusps without reduced excursion. No aortic stenosis. No aortic regurgitation. Tricuspid Valve Tricuspid valve not well visualized, grossly normal. Trace tricuspid regurgitation. Pulmonic Valve Pulmonic valve not well visualized, grossly normal. Pericardium No pericardial effusion. Great Vessels Normal size aortic root and proximal ascending aorta. CONCLUSIONS 1. This was a technically difficult examination due to the patient's body habitus. 2. Mild aortic sclerosis is present with no valvular stenosis or insufficiency. 3. Mitral leaflet thickeneing is present with minimal to mild mitral insufficiency. 4. There is no pericardial fluid present. 5. The left ventricular chamber size and systolic function are normal with no resting wall motion abnormalities. 6. Minimal tricuspid insufficiency is present with no evidence of pulmonary hypertension Dominic Hennessy M.D. (Electronically Signed) Final Date: 16 September 2017 07:38 MEASUREMENTS (Male / Female) Normal Values 2D ECHO LV Diastolic Diameter PLAX 3.7 cm 4.2 - 5.9 / 3.9 - 5.3 cm LV Systolic Diameter PLAX 2.4 cm 2.1 - 4.0 cm LV Fractional Shortening PLAX 35.1 % 25 - 46 % LV Ejection Fraction 2D Teich 65.3 % IVS Diastolic Thickness 1.2 cm LVPW Diastolic Thickness 1.2 cm LV Relative Wall Thickness 0.6 RV Internal Dim ED PLAX 2.9 cm 1.9 - 3.8 cm LVOT Diameter 2.3 cm Aortic Root Diameter 3.4 cm LA Systolic Diameter LX 3.7 cm 3.0 - 4.0 / 2.7 - 3.8 cm LA Volume 40.0 cm 18 - 58 / 22 - 52 cm Ascending Aorta Diameter 3.3 cm DOPPLER AV Peak Velocity 222.0 cm/s AV Peak Gradient 19.7 mmHg AV Mean Velocity 185.0 cm/s AV Mean Gradient 15.0 mmHg AV Velocity Time Integral 47.3 cm LVOT Peak Velocity 175.0 cm/s LVOT Peak Gradient 12.3 mmHg LVOT Mean Velocity 118.0 cm/s LVOT Mean Gradient 6.0 mmHg LVOT Velocity Time Integral 35.3 cm LVOT Stroke Volume 146.7 cm AV Area Cont Eq vti 3.1 cm AV Area Cont Eq pk 3.3 cm MV Peak Velocity 102.0 cm/s MV Peak Gradient 4.2 mmHg MV Mean Velocity 66.9 cm/s MV Mean Gradient 2.0 mmHg Mitral E Point Velocity 85.2 cm/s Mitral A Point Velocity 69.6 cm/s Mitral E to A Ratio 1.2 MV PHT Velocity 106.0 cm/s MV Deceleration [place] 444.0 cm/s MV Pressure Half Time 71.6 ms MV Area PHT 3.1 cm MV Deceleration Time 224.0 ms TR Peak Velocity 152.0 cm/s TR Peak Gradient 9.2 mmHg Right Atrial Pressure 5.0 mmHg Pulmonary Artery Systolic Pressu 14.2 mmHg Right Ventricular Systolic Press 14.2 mmHg PV Peak Velocity 87.6 cm/s PV Peak Gradient 3.1 mmHg PV Mean Velocity 68.2 cm/s PV Mean Gradient 2.0 mmHg PV Velocity Time Integral 20.8 cm LV E' Lateral Velocity 12.3 cm/s Mitral E to LV E' Lateral Ratio 6.9 LV E' Septal Velocity 9.9 cm/s Mitral E to LV E' Septal Ratio 8.6
--- NOTE | 2017-09-16 08:22 | Discharge Summary ---
Visit Information Visit Dates Admission Date: 09/14/17 Discharge Date: 09/16/17 Hospital Course Course Attending Physician: Liseth Lieberman MD Primary Care Physician: [place] RESENDIZ,Micheal Farias Hospital Course: 47-year-old male with past medical history of gastroesophageal reflux disease, previous back surgeries 2 for prolapsed disc, current active smoker (one pack per day), positive family history of acute coronary syndrome (brother at 48 years secondary to ME) came in with chief complaint of worsening chest pain that started 3 days prior to admission. #Chest pain Chest pain was atypical since it increases with deep breathing and changes in position however given the patient family history of sudden cardiac in his brother at age of 48, the patient was admitted to telemetry, serial troponin EKG were negative, echo was normal, cardiology was on board and they think that it is very unlikely that his chest pain is due to cardiac cause. They recommended discontinuing aspirin and avoiding NSAIDs since his pain might be due to GERD. 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 The patient will need to follow-up outpatient with GI doctor, he was given referral for that. #Current Active Smoker * Smoking cessation counselling done #Emphysema * 2/2 to smoking * crucial to quit. reduce smoking to prevent worsening changes and COPD. FC heart healthy diet Pain Mx morphine Dvt Px lovenox Allergies: Coded Allergies: No Known Allergies (09/14/17) Disposition Summary Disposition Principal Diagnosis: Chest pain Additional Diagnosis: GERD Discharge Disposition: home or self care Discharge Instructions General Discharge Information Code Status: Full Code Patient's Diet: heart healthy Patient's Activity: Asa tolerated Follow-Up Instructions/Appts: -Please follow-up with your primary care physician within 1 week after discharge -Please follow-up with bite block maker Dr. Hennessy within 1 week after discharge -Please follow-up with GI within 1 week after discharge, a referral was given to Parrish Escalante MD -Please avoid NSAIDs which include Aleve, ibuprofen, Motrin -Please use acetaminophen for pain -Please take medication as instructed -Please come back to ED if you experience chest pain Medications at Discharge Discharge Medications: Stop taking the following medications: Esomeprazole Magnesium (Nexium) 20 MG CAPSULE. ORAL DAILY Start taking the following new medications: Omeprazole (Omeprazole) 40 MG CAPSULE.DR 1 Capsule ORAL DAILY Qty = 30 No Refills Comments: Last Taken:09/16/17 GIVEN IV Time:0800 Copies To: [place] RESENDIZ,Micheal Farias
[2017-09-16] MEDS ORDERED: OMEPRAZOLE40 M1 PO (09:40)
--- NOTE | 2017-09-16 09:49 | Patient Discharge Instructions ---
Discharge Instructions General Discharge Information You were seen/treated for: Chest pain radiated to the back You had these procedures: Echocardiogram with normal results Special Instructions: -Please follow-up with your primary care physician within 1 week after discharge -Please follow-up with washery boss Dr. Hennessy within 1 week after discharge -Please follow-up with GI within 1 week after discharge, a referral was given to Parrish Escalante MD -Please avoid NSAIDs which include Aleve, ibuprofen, Motrin -Please use acetaminophen for pain -Please take medication as instructed -Please come back to ED if you experience chest pain Diet Additional DIET Information: Patient education material about diet in GERD was given Acute Coronary Syndrome Inclusion Criteria At DC or during hospital stay patient has or had the following: ACS DIAGNOSIS No Discharge Core Measures Meds if any: Prescribed or Continued at Discharge Meds if any: NOT Prescribed or Continued at Discharge Congestive Heart Failure Inclusion Criteria At DC or during hospital stay patient has or had the following: CHF DIAGNOSIS No Discharge Core Measures Meds if any: Prescribed or Continued at Discharge Meds if any: NOT Prescribed or Continued at Discharge Cerebrovascular accident Inclusion Criteria At DC or during hospital stay patient has or had the following: CVA/TIA Diagnosis No Discharge Core Measures Meds if any: Prescribed or Continued at Discharge Meds if any: NOT Prescribed or Continued at Discharge Venous thromboembolism Inclusion Criteria VTE Diagnosis No VTE Type NONE VTE Confirmed by (Test) NONE Discharge Core Measures - Per Current guidelines, there needs to be overlap - treatment for the first 5 days of Warfarin therapy. - If discharged on Warfarin prior to 5 days of - overlap therapy, the patient will need to be - assessed for post discharge needs including - *Post discharge parental anticoagulation - *Warfarin and/or parental anticoagulation education - *Follow up date to check INR post discharge At least 5 days overlap therapy as Inpatient Yes Meds if any: Prescribed or Continued at Discharge Note: Overlap Therapy is Warfarin and Anticoagulant Meds if any: NOT Prescribed or Continued at Discharge
== END 2017-09-16 11:05 | DRG 313 ==
LOC: ERH 17:02 → 1NO 20:07 → ERHI 20:07 → ENRESERV 21:53 → 1NO 22:22
PROVIDERS: Internal Medicine; Physician Assistant
DX: R07.9 Chest pain, unspecified (principal); K21.9 Gastro-esophageal reflux disease without esophagitis; F17.210 Nicotine dependence, cigarettes, uncomplicated; J43.9 Emphysema, unspecified
CPT/HCPCS: 1NSP; 36592; 71046; 80307; 82436; 93005; 93010; 93306; 96374; 99291; J1650; J3490